=== PATIENT | male | born 1955 | race Caucasian/White ===

== ENCOUNTER 2022-08-17 14:36 | Day surgery (SDC) | payer MEDICARE ==
[2022-08-17] VITALS (9 sets, daily range): BP systolic 141–170; BP diastolic 83–114
[~2022-08-17] VITALS: Ht 175.3 cm; Wt 99.7 kg
[2022-08-17] MEDS ORDERED: AMLO10TA70 PO (15:11)
[2022-08-17] MEDS ORDERED: CARV25TA2 PO (15:11)
[2022-08-17] MEDS ORDERED: CELE-193 PO (15:11)
[2022-08-17] MEDS ORDERED: ROSU40TA PO (15:11)
[2022-08-17] MEDS ORDERED: POTA-82 PO (15:11)
[2022-08-17] MEDS ORDERED: ASPI-1264 PO (15:11)
[2022-08-17] MEDS ORDERED: LOSA1TAB39 PO (15:11)
[2022-08-17] MEDS ORDERED: GABA300C PO (15:11)
[2022-08-17] MEDS ORDERED: IBUP-49 PO (15:11)
[2022-08-17] MEDS ORDERED: normal saline 1,000 ML IV SCH (15:25)
[2022-08-17] MEDS ORDERED: diphenhydrAMINE 25mg capsule PO PRN (15:25)
[2022-08-17] MEDS ORDERED: LORazepam 0.5 MG tablet PO PRN (15:25)
[2022-08-17 15:47] LABS: ALBUMIN 4.1 G/DL (3.4-5.0); ANION GAP 5 (8-16); BLOOD UREA NITROGEN 20 MG/DL (7-18); BUN/CREATININE RATIO 13.6 (5.4-32.0); CALCIUM 8.4 MG/DL (8.5-10.1); CHLORIDE 102 MMOL/L (99-107); CREATININE 1.47 MG/DL (0.60-1.10); GLUCOSE 163 MG/DL (70-104); POTASSIUM 3.3 MMOL/L (3.5-5.1); SODIUM 138 MMOL/L (135-145); TOTAL CARBON DIOXIDE 30.9 MMOL/L (24-32); eGFR 48 ML/MIN
[2022-08-17 15:49] LABS: BASOPHILS % (AUTO) 0.8 % (0-1); EOSINOPHILS # (AUTO) 0.1 X10'3 (0-0.9); EOSINOPHILS % (AUTO) 2.3 % (0-6); HEMATOCRIT 41.6 % (42.0-52.0); HEMOGLOBIN 14.7 g/dl (14.0-17.9); LYMPHOCYTES # (AUTO) 2.2 X10'3 (1.1-4.8); LYMPHOCYTES % (AUTO) 36.8 % (21-51); MEAN CORPUSCULAR HGB CONC 35.2 g/dL (33.0-36.5); MEAN PLATELET VOLUME 8.1 FL (7.4-10.4); MONOCYTES # (AUTO) 0.4 X10'3 (0-0.9); MONOCYTES % (AUTO) 6.3 % (2-12); NEUTROPHILS # (AUTO) 3.2 X10'3 (1.8-7.7); NEUTROPHILS % (AUTO) 53.8 % (42-75); PLATELET COUNT 189 X10'3 (140-440); RED BLOOD COUNT 4.73 X10'6 (4.70-6.10); RED CELL DISTRIBUTION WIDTH 14.6 % (11.5-14.5)
[2022-08-17 15:50] LABS: APTT 26 SECONDS (22-32)
[2022-08-17] MEDS ORDERED: pneumococcal 23-VAL P-sac vacc 25 mcg/0.5ml vial IMVAC ONE (15:55)
[2022-08-17] MEDS ORDERED: iohexol 350MG/ML 100ml bottle IV ONE ×3 (17:13→18:20)
[2022-08-17] MEDS ORDERED: verapamil 2.5 mg/ml inj IV ONE (17:13)
[2022-08-17] MEDS ORDERED: fentaNYL/PF 50MCG/1 ML 2ML syringe ONE (17:13)
[2022-08-17] MEDS ORDERED: nitroGLYCERIN-Tridil 50MG/D5W 250 ML IV ONE (17:13)
[2022-08-17] MEDS ORDERED: heparin 1,000unit/ml 10ml vial 10 ML ONE (17:13)
[2022-08-17] MEDS ORDERED: midazolam 1 mg/ML 2ml injection ONE ×3 (17:13→18:00)
[2022-08-17] MEDS ORDERED: LIDOcaine 1% (10mg/ml) 2ml vial ONE (17:13)
[2022-08-17] MEDS ORDERED: HYDROmorphone 1 mg/ml syringe ONE ×2 (17:40→18:01)
[2022-08-17] MEDS ORDERED: aspirin 325mg tablet ONE (17:52)
[2022-08-17] MEDS ORDERED: clopidogrel 300mg tablet ONE (17:52)
[2022-08-17] MEDS ORDERED: HYDROcodone/acetaminophen 5mg/325mg tablet PO PRN (19:15)
[2022-08-17] MEDS ORDERED: HYDROcodone/acetaminophen 10/325mg tab PO PRN (19:15)
== END 2022-08-17 21:40 | disposition home or self-care (01) ==
LOC: SSTAY O 14:36
PROVIDERS: ATTEND Student in an Organized Health Care Education/Training Program
DX: R94.39 Abnormal result of other cardiovascular function study (principal); I25.10 Atherosclerotic heart disease of native coronary artery without angina pectoris; I25.82 Chronic total occlusion of coronary artery; I25.2 Old myocardial infarction; I10 Essential (primary) hypertension; Z79.899 Other long term (current) drug therapy; Z98.890 Other specified postprocedural states; Z88.8 Allergy status to other drugs, medicaments and biological substances; Z79.01 Long term (current) use of anticoagulants
CPT/HCPCS: 36415; 80048; 85025; 85610; 85730; 92920; 93005; 93458; 99152; 99153; C1725; C1751; C1769; C1894; J1170; J1644; J2250; J3010; J3490; J7030; Q0163; Q9967; 90732; A4615; A6258; A6402